=== PATIENT | female | born 1995 ===

== ENCOUNTER 2020-05-16 15:55 | Outpatient (CLI) | payer MEDICAID ==
[2020-05-16 16:46] VITALS: BP 111/59
[2020-05-16] MEDS ORDERED: LACTATED RINGERS 1,000 ML ONE (17:24)
[2020-05-16 17:26] LABS: Bilirubin,Urine NEG (Negative); Blood,Urine NEG (Negative); Color,Urine Yellow (Yellow); Mucus,Urine 1+ /HPF; Protein,Urine <15 mg/dL mg/dL (Negative); RBC,Urine < 1.0 /HPF (0.0-6.0); Urobilinogen,Urine < 2.0 mg/dL (<2.0); WBC,Urine < 1.0 /HPF (0.0-6.0)
--- NOTE | 2020-05-16 18:04 | Ultrasound Report ---
ULTRASOUND OBSTETRIC LIMITED ULTRASOUND BIOPHYSICAL PROFILE INDICATION / CLINICAL INFORMATION: low fluid. Clinical Gestational Age (GA) in weeks, days: TECHNIQUE: Transabdominal. COMPARISON: None available. FINDINGS: BREATHING MOVEMENT = 2 GROSS BODY MOVEMENT = 2 TONE = 2 QUALITATIVE AMNIOTIC FLUID VOLUME = 2 TOTAL BIOPHYSICAL SCORE = 8/8 HEART RATE (beats per minute): 156-158 bpm AMNIOTIC FLUID INDEX (cm) = 8.7 cm (normal = 7-24 cm) PRESENTATION: Cephalic. ADDITIONAL FINDINGS: None. IMPRESSION: 1. Biophysical Score = 8/8 2. TERRANCE measures 8.7 cm 3. heart rate measures 156-158 bpm. Signer Name: Fernando Bingham MD Signed: 05/16/2020 6:00 PM Workstation Name: [employer]
--- NOTE | 2020-05-16 22:02 | Ultrasound Report ---
ULTRASOUND OBSTETRIC LIMITED INDICATION / CLINICAL INFORMATION: low fluid. Clinical Gestational Age (GA): 39 weeks. 2 days COMPARISON: None available. FINDINGS: HEART RATE (beats per minute): 156 AMNIOTIC FLUID INDEX (cm) = 8.7 (normal = 7-24 cm) PRESENTATION: Cephalic. ADDITIONAL FINDINGS: None. IMPRESSION: 1. TERRANCE measures 8.7 cm. Signer Name: Dustin Redmond MD Signed: 05/16/2020 9:58 PM Workstation Name: [id number]
== END 2020-05-16 18:40 | disposition home or self-care (01) ==
LOC: APU 15:55 → TRG 15:55
PROVIDERS: ATTEND Obstetrics & Gynecology
DX: O41.03X0 Oligohydramnios, third trimester, not applicable or unspecified (principal); Z3A.39 39 weeks gestation of pregnancy
CPT/HCPCS: 59025; 76815; 76819; 81001

== ENCOUNTER 2020-05-23 15:40 | Inpatient (IN) | payer MEDICAID ==
[2020-05-23] MEDS ORDERED: TERBUTALINE 1 MG/1 ML INJ SUB-Q PRN (17:10)
[2020-05-23] MEDS ORDERED: BUTORPHANOL 2 MG/1 ML INJ IV PRN (17:10)
[2020-05-23] MEDS ORDERED: ONDANSETRON 4 MG/2 ML INJ IV PRN (17:10)
[2020-05-23] MEDS ORDERED: ePHEDrine SULFATE 50 MG/1 ML INJ IV PRN (17:10)
[2020-05-23] MEDS ORDERED: MINERAL OIL 30 ML ORAL LIQD PO PRN (17:10)
[2020-05-23] MEDS ORDERED: NALOXONE 0.4 MG/1 ML INJ IV PRN (17:10)
--- NOTE | 2020-05-23 17:24 | History and Physical Report ---
History of Present Illness Date of examination: 05/23/20 Date of admission: 05/23/20 15:40 Chief complaint: Presents for induction of labor due to postdates and low TERRANCE History of present illness: Early entry to care at [facility] [employer], Co-managed with [facility] due to obesity. course complicated by Vitamin D Deficiency and Low TERRANCE. Past History Past Medical History: no pertinent history Past Surgical History: no surgical history Family/Genetic History: diabetes (Mother) Social history: no significant social history, single - Obstetrical History Expected Date of Delivery: 05/21/20 Actual Gestation: 40 Week(s) 2 Day(s) : 4 Spontaneous Abortions: 1 Induced : 2 Medications and Allergies Allergies Allergy/AdvReac Type Severity Reaction Status Date / Time cats AdvReac Intermediate Swelling Uncoded 05/16/20 16:37 Active Meds: Active Medications Butorphanol Tartrate (Stadol) 2 mg IV Q2H PRN PRN Reason: Pain , Severe (7-10) Dinoprostone (Cervidil) 10 mg VG ONCE ONE Stop: 05/23/20 18:01 Ephedrine Sulfate (Ephedrine Sulfate) 10 mg IV Q2M PRN PRN Reason: Hypotension Lactated Ringer's (Lactated Ringers) 1,000 mls @ 125 mls/hr IV DIRECT HAN Oxytocin/Sodium Chloride (Pitocin/Ns 30 Unit/500ml) 30 units in 500 mls @ 40 mls/hr IV TITR HAN; Protocol Lidocaine (Xylocaine 2%) 20 ml INFILTRATI ONCE ONE Stop: 05/23/20 17:11 Mineral Oil (Mineral Oil) 30 ml PO QHS PRN PRN Reason: Constipation Naloxone HCl (Naloxone) 0.1 mg IV Q2MIN PRN PRN Reason: Res Rate </= 8 or 02 SAT < 92% Ondansetron HCl (Zofran) 4 mg IV Q8H PRN PRN Reason: Nausea And Vomiting Terbutaline Sulfate (Brethine) 0.25 mg SUB-Q ONCE PRN PRN Reason: Hyperstimulation/Hypertonicity Review of Systems All systems: negative - Vital Signs Vital signs: Vital Signs Temp Pulse Resp BP Pulse Ox 98.2 F 74 18 116/68 98 05/23/20 16:11 05/23/20 16:11 05/23/20 16:11 05/23/20 16:11 05/23/20 16:11 Temp Pulse Resp BP Pulse Ox 98.2 F 99 H 18 116/68 99 05/23/20 16:11 05/23/20 17:16 05/23/20 16:11 05/23/20 16:17 05/23/20 17:16 - Physical Exam Breasts: Positive: normal Cardiovascular: Regular rate Lungs: Positive: Clear to auscultation, Normal air movement Abdomen: Positive: normal appearance, soft, normal bowel sounds Genitourinary (Female): Positive: normal external genitalia, normal perenium Vagina: Positive: normal moisture Uterus: Positive: enlarged Anus/Rectum: Positive: normal perianal skin Extremities: Positive: normal - Obstetrical FHR: category 1 Uterine Contraction Monitor Mode: External Cervical Dilatation: 2 (intact) Cervical Effacement Percentage: 40 station: -3 Uterine Contraction Pattern: Absent Results All other labs normal. Assessment and Plan A: IUP @ 40 2/7 Weeks Category I Tracing Low TERRANCE GBS Negative P: Admit to L&D Per Routine Orders Cervidil Induction
[2020-05-23] MEDS: LACTATED RINGERS 1,000 ML IV SCH (17:33)
[2020-05-23 17:59] LABS: Hematocrit 36.2 % (30.3-42.9); Hemoglobin 11.9 gm/dl (10.1-14.3); Mean Corpuscular HGB Conc 33 % (30-34); Mean Corpuscular Volume 84 fl (79-97); Platelet Count 182 K/mm3 (140-440); Red Blood Count 4.29 M/mm3 (3.65-5.03); Red Cell Distribution Width 16.4 % (13.2-15.2)
[2020-05-23] MEDS ORDERED: DINOPROSTONE 10 MG VAG SUPP VG ONE (18:00)
[2020-05-23] MEDS ORDERED: OXYTOCIN DRIP 30 UNITS/500 ML BAG IV SCH (18:00)
[2020-05-23] MEDS ORDERED: LIDOCAINE (2%) 20 MG/1 ML VIAL 20 ML MDV INFILTRATI ONE (18:00)
[2020-05-24] MEDS: LACTATED RINGERS 1,000 ML IV SCH ×2 (00:54→08:29)
--- NOTE | 2020-05-24 07:05 | Progress Note ---
Assessment and Plan A: IUP @ 40 3/7 Weeks Category I Tracing Low TERRANCE GBS Negative P: Start Pitocin Augmentation Subjective - Subjective Date of service: 05/24/20 (RN states she can not find Cervidil in vaginal vault.) Interval history: [facility] [employer], Co-managed with [facility] due to obesity. course complicated by Vitamin D Deficiency and Low TERRANCE. Patient reports: movement normal, contractions, other (Patients states she thinks she lost Cervidil during a BM earlier in the night) Objective - Vital Signs Vital Signs: Vital Signs - 12hr 05/23/20 05/23/20 05/23/20 19:06 19:11 19:16 Temperature Pulse Rate 94 H 81 84 Respiratory Rate Blood Pressure 105/53 Blood Pressure [Right] O2 Sat by Pulse 100 100 100 Oximetry 05/23/20 05/23/20 05/23/20 19:21 19:26 19:31 Temperature Pulse Rate 81 80 85 Respiratory Rate Blood Pressure Blood Pressure [Right] O2 Sat by Pulse 100 100 100 Oximetry 05/23/20 05/23/20 05/23/20 19:36 19:41 19:46 Temperature Pulse Rate 81 92 H 84 Respiratory Rate Blood Pressure Blood Pressure [Right] O2 Sat by Pulse 100 100 100 Oximetry 05/23/20 05/23/20 05/23/20 19:51 19:56 20:00 Temperature 98.4 F Pulse Rate 92 H 90 80 Respiratory 18 Rate Blood Pressure Blood Pressure 105/53 [Right] O2 Sat by Pulse 100 100 98 Oximetry 05/23/20 05/23/20 05/23/20 20:01 20:06 20:11 Temperature Pulse Rate 103 H 80 81 Respiratory Rate Blood Pressure Blood Pressure [Right] O2 Sat by Pulse 100 100 100 Oximetry 05/23/20 05/23/20 05/23/20 20:16 20:25 20:30 Temperature Pulse Rate 78 78 78 Respiratory Rate Blood Pressure Blood Pressure [Right] O2 Sat by Pulse 100 100 100 Oximetry 05/23/20 05/23/20 05/23/20 20:35 20:40 20:45 Temperature Pulse Rate 78 80 93 H Respiratory Rate Blood Pressure Blood Pressure [Right] O2 Sat by Pulse 99 99 99 Oximetry 05/23/20 05/23/20 05/23/20 20:50 20:55 21:00 Temperature Pulse Rate 85 70 78 Respiratory Rate Blood Pressure Blood Pressure [Right] O2 Sat by Pulse 99 100 100 Oximetry 05/23/20 05/23/20 05/23/20 21:05 21:10 21:15 Temperature Pulse Rate 88 74 78 Respiratory Rate Blood Pressure Blood Pressure [Right] O2 Sat by Pulse 100 100 100 Oximetry 05/23/20 05/23/20 05/23/20 21:20 21:25 21:30 Temperature Pulse Rate 92 H 79 74 Respiratory Rate Blood Pressure Blood Pressure [Right] O2 Sat by Pulse 100 100 100 Oximetry 05/23/20 05/23/20 05/23/20 21:35 21:40 21:45 Temperature Pulse Rate 82 83 77 Respiratory Rate Blood Pressure Blood Pressure [Right] O2 Sat by Pulse 100 100 100 Oximetry 05/23/20 05/23/20 05/23/20 21:50 21:55 22:00 Temperature Pulse Rate 78 81 80 Respiratory Rate Blood Pressure Blood Pressure [Right] O2 Sat by Pulse 99 99 99 Oximetry 05/23/20 05/23/20 05/23/20 22:05 22:10 22:15 Temperature Pulse Rate 81 78 78 Respiratory Rate Blood Pressure Blood Pressure [Right] O2 Sat by Pulse 99 99 99 Oximetry 05/23/20 05/23/20 05/23/20 22:20 22:25 22:30 Temperature Pulse Rate 81 80 79 Respiratory Rate Blood Pressure Blood Pressure [Right] O2 Sat by Pulse 99 100 100 Oximetry 05/23/20 05/23/20 05/23/20 22:43 22:48 22:53 Temperature Pulse Rate 75 73 64 Respiratory Rate Blood Pressure Blood Pressure [Right] O2 Sat by Pulse 99 100 100 Oximetry 05/23/20 05/23/20 05/23/20 22:58 23:03 23:08 Temperature Pulse Rate 67 70 65 Respiratory Rate Blood Pressure Blood Pressure [Right] O2 Sat by Pulse 100 99 100 Oximetry 05/23/20 05/23/20 05/23/20 23:13 23:18 23:23 Temperature Pulse Rate 70 68 69 Respiratory Rate Blood Pressure Blood Pressure [Right] O2 Sat by Pulse 99 100 100 Oximetry 05/23/20 05/23/20 05/23/20 23:28 23:33 23:38 Temperature Pulse Rate 78 71 74 Respiratory Rate Blood Pressure Blood Pressure [Right] O2 Sat by Pulse 99 99 99 Oximetry 05/23/20 05/23/20 05/23/20 23:43 23:48 23:53 Temperature Pulse Rate 73 70 67 Respiratory Rate Blood Pressure Blood Pressure [Right] O2 Sat by Pulse 99 99 99 Oximetry 05/23/20 05/24/20 05/24/20 23:58 00:00 00:03 Temperature 98 F Pulse Rate 63 63 70 Respiratory 16 Rate Blood Pressure Blood Pressure 108/60 [Right] O2 Sat by Pulse 99 100 99 Oximetry 05/24/20 05/24/20 05/24/20 00:08 00:13 00:18 Temperature Pulse Rate 63 68 69 Respiratory Rate Blood Pressure Blood Pressure [Right] O2 Sat by Pulse 98 99 98 Oximetry 05/24/20 05/24/20 05/24/20 00:27 00:32 00:37 Temperature Pulse Rate 71 65 63 Respiratory Rate Blood Pressure Blood Pressure [Right] O2 Sat by Pulse 100 100 100 Oximetry 05/24/20 05/24/20 05/24/20 00:42 00:47 00:52 Temperature Pulse Rate 67 63 71 Respiratory Rate Blood Pressure Blood Pressure [Right] O2 Sat by Pulse 100 98 99 Oximetry 05/24/20 05/24/20 05/24/20 00:53 00:57 01:02 Temperature Pulse Rate 67 73 70 Respiratory Rate Blood Pressure 96/46 Blood Pressure [Right] O2 Sat by Pulse 99 99 Oximetry 05/24/20 05/24/20 05/24/20 01:07 01:12 01:17 Temperature Pulse Rate 92 H 70 66 Respiratory Rate Blood Pressure Blood Pressure [Right] O2 Sat by Pulse 98 99 100 Oximetry 05/24/20 05/24/20 05/24/20 01:22 01:27 01:32 Temperature Pulse Rate 69 66 65 Respiratory Rate Blood Pressure Blood Pressure [Right] O2 Sat by Pulse 100 99 99 Oximetry 05/24/20 05/24/20 05/24/20 01:37 01:42 01:47 Temperature Pulse Rate 68 65 76 Respiratory Rate Blood Pressure Blood Pressure [Right] O2 Sat by Pulse 99 99 98 Oximetry 05/24/20 05/24/20 05/24/20 01:52 01:57 02:02 Temperature Pulse Rate 59 L 64 61 Respiratory Rate Blood Pressure Blood Pressure [Right] O2 Sat by Pulse 99 99 99 Oximetry 05/24/20 05/24/20 05/24/20 02:07 02:12 02:17 Temperature Pulse Rate 68 57 L 63 Respiratory Rate Blood Pressure Blood Pressure [Right] O2 Sat by Pulse 99 99 99 Oximetry 05/24/20 05/24/20 05/24/20 02:22 02:27 02:35 Temperature Pulse Rate 63 71 87 Respiratory Rate Blood Pressure Blood Pressure [Right] O2 Sat by Pulse 98 100 98 Oximetry 05/24/20 05/24/20 05/24/20 02:40 02:45 02:50 Temperature Pulse Rate 67 64 63 Respiratory Rate Blood Pressure Blood Pressure [Right] O2 Sat by Pulse 99 100 99 Oximetry 05/24/20 05/24/20 05/24/20 02:55 03:00 03:05 Temperature Pulse Rate 60 61 57 L Respiratory Rate Blood Pressure Blood Pressure [Right] O2 Sat by Pulse 100 99 99 Oximetry 05/24/20 05/24/20 05/24/20 03:10 03:15 03:20 Temperature Pulse Rate 60 67 82 Respiratory Rate Blood Pressure Blood Pressure [Right] O2 Sat by Pulse 100 99 99 Oximetry 05/24/20 05/24/20 05/24/20 03:25 03:36 03:41 Temperature Pulse Rate 78 89 65 Respiratory Rate Blood Pressure Blood Pressure [Right] O2 Sat by Pulse 99 98 100 Oximetry 05/24/20 05/24/20 05/24/20 03:43 03:46 03:51 Temperature Pulse Rate 67 76 64 Respiratory Rate Blood Pressure 109/53 Blood Pressure [Right] O2 Sat by Pulse 100 100 Oximetry 05/24/20 05/24/20 05/24/20 03:56 03:59 04:01 Temperature 97.7 F Pulse Rate 67 67 73 Respiratory 16 Rate Blood Pressure Blood Pressure 109/53 [Right] O2 Sat by Pulse 100 100 100 Oximetry 05/24/20 05/24/20 05/24/20 04:18 04:23 04:28 Temperature Pulse Rate 101 H 77 72 Respiratory Rate Blood Pressure Blood Pressure [Right] O2 Sat by Pulse 98 100 100 Oximetry 05/24/20 05/24/20 05/24/20 04:33 04:38 04:49 Temperature Pulse Rate 66 78 71 Respiratory Rate Blood Pressure Blood Pressure [Right] O2 Sat by Pulse 100 100 100 Oximetry 05/24/20 05/24/2005/24/20 04:54 04:59 05:04 Temperature Pulse Rate 66 66 71 Respiratory Rate Blood Pressure Blood Pressure [Right] O2 Sat by Pulse 100 100 100 Oximetry 05/24/20 05/24/20 05/24/20 05:09 05:14 05:19 Temperature Pulse Rate 87 68 66 Respiratory Rate Blood Pressure Blood Pressure [Right] O2 Sat by Pulse 99 98 99 Oximetry 05/24/20 05/24/20 05/24/20 05:24 05:29 05:34 Temperature Pulse Rate 62 70 74 Respiratory Rate Blood Pressure Blood Pressure [Right] O2 Sat by Pulse 99 100 99 Oximetry 05/24/20 05/24/20 05/24/20 05:39 05:44 05:49 Temperature Pulse Rate 79 75 79 Respiratory Rate Blood Pressure Blood Pressure [Right] O2 Sat by Pulse 100 100 99 Oximetry 05/24/20 05/24/20 05/24/20 05:54 05:59 06:04 Temperature Pulse Rate 84 77 72 Respiratory Rate Blood Pressure Blood Pressure [Right] O2 Sat by Pulse 100 99 99 Oximetry 05/24/20 05/24/20 05/24/20 06:09 06:19 06:24 Temperature Pulse Rate 70 90 75 Respiratory Rate Blood Pressure Blood Pressure [Right] O2 Sat by Pulse 100 100 100 Oximetry 05/24/20 05/24/20 05/24/20 06:29 06:34 06:39 Temperature Pulse Rate 71 78 80 Respiratory Rate Blood Pressure Blood Pressure [Right] O2 Sat by Pulse 99 100 100 Oximetry 05/24/20 05/24/20 05/24/20 06:45 06:50 06:55 Temperature Pulse Rate 94 H 80 82 Respiratory Rate Blood Pressure Blood Pressure [Right] O2 Sat by Pulse 99 99 98 Oximetry 05/24/20 07:00 Temperature Pulse Rate 78 Respiratory Rate Blood Pressure Blood Pressure [Right] O2 Sat by Pulse 100 Oximetry - Exam Cardiovascular: Regular rate Lungs: Normal air movement Abdomen: Present: normal appearance, soft Uterus: Present: normal, firm, fundal height above umbilicus FHR: category 1 Uterine Contraction Monitor Mode: External Cervical Dilatation: 3 (Intact; Cervidil is not in vagina) Cervical Effacement Percentage: 60 station: -3 Uterine Contraction Pattern: Irregular Uterine Tone Measurement Phase: Resting Uterine Contraction Intensity: Mild - Labs Labs: Abnormal Labs 11/16/20 16:30 WBC 11.3 H RDW 16.4 H Laboratory Results - last 24 hr 05/23/20 05/23/20 16:30 16:30 WBC 11.3 H RBC 4.29 Hgb 11.9 Hct 36.2 MCV 84 MCH 28 MCHC 33 RDW 16.4 H Plt Count 182 Blood Type O POSITIVE Antibody Screen Negative
[2020-05-24] MEDS ORDERED: OXYTOCIN DRIP 30 UNITS/500 ML BAG IV SCH (08:00)
--- NOTE | 2020-05-24 11:10 | Progress Note ---
Assessment and Plan - Patient Problems (1) Encounter for induction of labor Current Visit: Yes Status: Acute Plan to address problem: Continue Pitocin as tolerated Pain meds as desired per orders Anticipate (2) Maternal obesity affecting , antepartum Current Visit: Yes Status: Acute Subjective - Subjective Date of service: 05/24/20 Principal diagnosis: IOL Interval history: See admission H & P and OB progress notes Patient reports: movement normal, contractions ("oh they're starting to hurt"), no new complaints, no loss of fluid, no vaginal bleeding Objective - Vital Signs Vital Signs: Vital Signs - 12hr 05/23/20 05/23/20 05/23/20 23:08 23:13 23:18 Temperature Pulse Rate 65 70 68 Respiratory Rate Blood Pressure Blood Pressure [Right] O2 Sat by Pulse 100 99 100 Oximetry 05/23/20 05/23/20 05/23/20 23:23 23:28 23:33 Temperature Pulse Rate 69 78 71 Respiratory Rate Blood Pressure Blood Pressure [Right] O2 Sat by Pulse 100 99 99 Oximetry 05/23/20 05/23/20 05/23/20 23:38 23:43 23:48 Temperature Pulse Rate 74 73 70 Respiratory Rate Blood Pressure Blood Pressure [Right] O2 Sat by Pulse 99 99 99 Oximetry 05/23/20 05/23/20 05/24/20 23:53 23:58 00:00 Temperature 98 F Pulse Rate 67 63 63 Respiratory 16 Rate Blood Pressure Blood Pressure 108/60 [Right] O2 Sat by Pulse 99 99 100 Oximetry 05/24/20 05/24/20 05/24/20 00:03 00:08 00:13 Temperature Pulse Rate 70 63 68 Respiratory Rate Blood Pressure Blood Pressure [Right] O2 Sat by Pulse 99 98 99 Oximetry 05/24/20 05/24/20 05/24/20 00:18 00:27 00:32 Temperature Pulse Rate 69 71 65 Respiratory Rate Blood Pressure Blood Pressure [Right] O2 Sat by Pulse 98 100 100 Oximetry 05/24/20 05/24/20 05/24/20 00:37 00:42 00:47 Temperature Pulse Rate 63 67 63 Respiratory Rate Blood Pressure Blood Pressure [Right] O2 Sat by Pulse 100 100 98 Oximetry 05/24/20 05/24/20 05/24/20 00:52 00:53 00:57 Temperature Pulse Rate 71 67 73 Respiratory Rate Blood Pressure 96/46 Blood Pressure [Right] O2 Sat by Pulse 99 99 Oximetry 05/24/20 05/24/20 05/24/20 01:02 01:07 01:12 Temperature Pulse Rate 70 92 H 70 Respiratory Rate Blood Pressure Blood Pressure [Right] O2 Sat by Pulse 99 98 99 Oximetry 05/24/20 05/24/20 05/24/20 01:17 01:22 01:27 Temperature Pulse Rate 66 69 66 Respiratory Rate Blood Pressure Blood Pressure [Right] O2 Sat by Pulse 100 100 99 Oximetry 05/24/20 05/24/20 05/24/20 01:32 01:37 01:42 Temperature Pulse Rate 65 68 65 Respiratory Rate Blood Pressure Blood Pressure [Right] O2 Sat by Pulse 99 99 99 Oximetry 05/24/20 05/24/20 05/24/20 01:47 01:52 01:57 Temperature Pulse Rate 76 59 L 64 Respiratory Rate Blood Pressure Blood Pressure [Right] O2 Sat by Pulse 98 99 99 Oximetry 05/24/20 05/24/20 05/24/20 02:02 02:07 02:12 Temperature Pulse Rate 61 68 57 L Respiratory Rate Blood Pressure Blood Pressure [Right] O2 Sat by Pulse 99 99 99 Oximetry 05/24/20 05/24/20 05/24/20 02:17 02:22 02:27 Temperature Pulse Rate 63 63 71 Respiratory Rate Blood Pressure Blood Pressure [Right] O2 Sat by Pulse 99 98 100 Oximetry 05/24/20 05/24/20 05/24/20 02:35 02:40 02:45 Temperature Pulse Rate 87 67 64 Respiratory Rate Blood Pressure Blood Pressure [Right] O2 Sat by Pulse 98 99 100 Oximetry 05/24/20 05/24/20 05/24/20 02:50 02:55 03:00 Temperature Pulse Rate 63 60 61 Respiratory Rate Blood Pressure Blood Pressure [Right] O2 Sat by Pulse 99 100 99 Oximetry 05/24/20 05/24/20 05/24/20 03:05 03:10 03:15 Temperature Pulse Rate 57 L 60 67 Respiratory Rate Blood Pressure Blood Pressure [Right] O2 Sat by Pulse 99 100 99 Oximetry 05/24/20 05/24/20 05/24/20 03:20 03:25 03:36 Temperature Pulse Rate 82 78 89 Respiratory Rate Blood Pressure Blood Pressure [Right] O2 Sat by Pulse 99 99 98 Oximetry 05/24/20 05/24/20 05/24/20 03:41 03:43 03:46 Temperature Pulse Rate 65 67 76 Respiratory Rate Blood Pressure 109/53 Blood Pressure [Right] O2 Sat by Pulse 100 100 Oximetry 05/24/20 05/24/20 05/24/20 03:51 03:56 03:59 Temperature 97.7 F Pulse Rate 64 67 67 Respiratory 16 Rate Blood Pressure Blood Pressure 109/53 [Right] O2 Sat by Pulse 100 100 100 Oximetry 05/24/20 05/24/20 05/24/20 04:01 04:18 04:23 Temperature Pulse Rate 73 101 H 77 Respiratory Rate Blood Pressure Blood Pressure [Right] O2 Sat by Pulse 100 98 100 Oximetry 05/24/20 05/24/20 05/24/20 04:28 04:33 04:38 Temperature Pulse Rate 72 66 78 Respiratory Rate Blood Pressure Blood Pressure [Right] O2 Sat by Pulse 100 100 100 Oximetry 05/24/20 05/24/20 05/24/20 04:49 04:54 04:59 Temperature Pulse Rate 71 66 66 Respiratory Rate Blood Pressure Blood Pressure [Right] O2 Sat by Pulse 100 100 100 Oximetry 05/24/20 05/24/20 05/24/20 05:04 05:09 05:14 Temperature Pulse Rate 71 87 68 Respiratory Rate Blood Pressure Blood Pressure [Right] O2 Sat by Pulse 100 99 98 Oximetry 05/24/20 05/24/20 05/24/20 05:19 05:24 05:29 Temperature Pulse Rate 66 62 70 Respiratory Rate Blood Pressure Blood Pressure [Right] O2 Sat by Pulse 99 99 100 Oximetry 05/24/20 05/24/20 05/24/20 05:34 05:39 05:44 Temperature Pulse Rate 74 79 75 Respiratory Rate Blood Pressure Blood Pressure [Right] O2 Sat by Pulse 99 100 100 Oximetry 05/24/20 05/24/20 05/24/20 05:49 05:54 05:59 Temperature Pulse Rate 79 84 77 Respiratory Rate Blood Pressure Blood Pressure [Right] O2 Sat by Pulse 99 100 99 Oximetry 05/24/20 05/24/20 05/24/20 06:04 06:09 06:19 Temperature Pulse Rate 72 70 90 Respiratory Rate Blood Pressure Blood Pressure [Right] O2 Sat by Pulse 99 100 100 Oximetry 11/05/24/20 05/24/20 06:24 06:29 06:34 Temperature Pulse Rate 75 71 78 Respiratory Rate Blood Pressure Blood Pressure [Right] O2 Sat by Pulse 100 99 100 Oximetry 05/24/20 05/24/20 05/24/20 06:39 06:45 06:50 Temperature Pulse Rate 80 94 H 80 Respiratory Rate Blood Pressure Blood Pressure [Right] O2 Sat by Pulse 100 99 99 Oximetry 05/24/20 05/24/20 05/24/20 06:55 07:00 07:05 Temperature Pulse Rate 82 78 78 Respiratory Rate Blood Pressure Blood Pressure [Right] O2 Sat by Pulse 98 100 99 Oximetry 05/24/20 05/24/20 05/24/20 07:15 07:20 07:25 Temperature Pulse Rate 79 79 86 Respiratory Rate Blood Pressure Blood Pressure [Right] O2 Sat by Pulse 100 99 98 Oximetry 05/24/20 05/24/20 05/24/20 07:30 07:35 07:40 Temperature Pulse Rate 64 79 72 Respiratory Rate Blood Pressure Blood Pressure [Right] O2 Sat by Pulse 99 99 98 Oximetry 05/24/20 05/24/20 05/24/20 07:45 07:50 07:55 Temperature Pulse Rate 74 69 66 Respiratory Rate Blood Pressure Blood Pressure [Right] O2 Sat by Pulse 98 99 99 Oximetry 05/24/20 05/24/20 05/24/20 08:00 08:05 08:10 Temperature Pulse Rate 69 72 69 Respiratory Rate Blood Pressure Blood Pressure [Right] O2 Sat by Pulse 98 98 99 Oximetry 05/24/20 05/24/20 05/24/20 08:15 08:16 08:17 Temperature 98.9 F Pulse Rate 78 70 69 Respiratory 18 Rate Blood Pressure 116/56 Blood Pressure 116/56 [Right] O2 Sat by Pulse 98 99 Oximetry 05/24/20 05/24/20 05/24/20 08:20 08:25 08:30 Temperature Pulse Rate 75 67 76 Respiratory Rate Blood Pressure Blood Pressure [Right] O2 Sat by Pulse 98 99 98 Oximetry 05/24/20 05/24/20 05/24/20 08:35 08:40 08:45 Temperature Pulse Rate 74 74 78 Respiratory Rate Blood Pressure Blood Pressure [Right] O2 Sat by Pulse 99 98 98 Oximetry 05/24/20 05/24/20 05/24/20 08:58 09:03 09:08 Temperature Pulse Rate 74 78 82 Respiratory Rate Blood Pressure Blood Pressure [Right] O2 Sat by Pulse 100 99 99 Oximetry 05/24/20 05/24/20 05/24/20 09:13 09:18 09:23 Temperature Pulse Rate 77 75 59 L Respiratory Rate Blood Pressure Blood Pressure [Right] O2 Sat by Pulse 99 98 100 Oximetry 05/24/20 05/24/20 05/24/20 09:28 09:33 09:38 Temperature Pulse Rate 62 63 66 Respiratory Rate Blood Pressure Blood Pressure [Right] O2 Sat by Pulse 99 99 99 Oximetry 05/24/20 05/24/20 05/24/20 09:43 09:44 09:48 Temperature Pulse Rate 73 79 78 Respiratory Rate Blood Pressure 113/54 Blood Pressure [Right] O2 Sat by Pulse 99 99 Oximetry 05/24/20 05/24/20 05/24/20 09:53 09:58 10:03 Temperature Pulse Rate 78 74 74 Respiratory Rate Blood Pressure Blood Pressure [Right] O2 Sat by Pulse 99 99 99 Oximetry 05/24/20 10:40 Temperature Pulse Rate 65 Respiratory Rate Blood Pressure 117/54 Blood Pressure [Right] O2 Sat by Pulse Oximetry - Exam Breasts: deferred Cardiovascular: Regular rate Lungs: Normal air movement Abdomen: Present: other (gravid) Uterus: Present: other (enlarged, S=D) FHR: category 1 Uterine Contraction Monitor Mode: External Cervical Dilatation: 4 (vertex) Cervical Effacement Percentage: 70 (Pitocin @ 8mu/min) station: -2 Uterine Contraction Frequency (min): 2 Uterine Contraction Pattern: Regular Uterine Tone Measurement Phase: Resting Uterine Contraction Intensity: Moderate Extremities: edema - Labs Labs: Abnormal Labs 05/23/20 16:30 WBC 11.3 H RDW 16.4 H Laboratory Results - last 24 hr 05/23/20 05/23/20 16:30 16:30 WBC 11.3 H RBC 4.29 Hgb 11.9 Hct 36.2 MCV 84 MCH 28 MCHC 33 RDW 16.4 H Plt Count 182 Blood Type O POSITIVE Antibody Screen Negative
--- NOTE | 2020-05-24 13:41 | Event Note ---
Date: 05/24/20 SVE: /-1. No BOW is palpated, small amount of pink blood tinged fluid noted. Pt states she has "felt wet for some time, but can't remember a big gush occuring". Therefore, rupture time is unknown. Pitocin increased to 10 mu/min. Will con't to monitor.
[2020-05-24] MEDS ORDERED: fentaNYL 100 MCG/2 ML INJ IV SCH (16:00)
[2020-05-24] MEDS ORDERED: LIDOCAINE (2%) 20 MG/1 ML VIAL 20 ML MDV INFILTRATI ONE (19:04)
[2020-05-24] MEDS ORDERED: LANOLIN/ZINC/DIMETHICONE (LANSINOH) 7 GM TP PRN (21:27)
[2020-05-24] MEDS ORDERED: MAGNESIUM HYDROXIDE (MOM) ORAL LIQD UDC PO PRN (21:27)
[2020-05-24] MEDS ORDERED: diphenhydrAMINE 25 MG CAP PO PRN (21:27)
[2020-05-24] MEDS ORDERED: WITCH HAZEL/ GLYCERIN PAD TP PRN (21:27)
[2020-05-24] MEDS ORDERED: PROMETHAZINE 25 MG TAB PO PRN (21:27)
--- NOTE | 2020-05-24 21:34 | Procedure Note ---
OB Delivery Note - Delivery Date of Delivery: 05/24/20 (2105) Surgeon: ANGEL CARSON (CNM) Estimated blood loss: 200cc - Vaginal Delivery presentation: vertex Delivery position: OA (ALOK) Intrapartum events: meconium (term) Delivery induction: cervidil Delivery augmentation: pitocin Delivery monitor: external FHT, external uterine Route of delivery: Delivery placenta: spontaneous (2114) Delivery cord: nuchal cord (x1, tight, reduced on perineum), 3 umbilical vessels Episiotomy: none Delivery laceration: none Anesthesia: none Delivery comments: of viable female crying infant placed directly to maternal abdomen. Cord double clamped, cut by FOB after cessation of pulsation. Cord blood collected. Placenta spontaneously delivered, pinedo, disposed per hospital policy. Uterus firm @ U-2, hemostasis maintained. Perineum intact. Mother and baby safe, stable and left in care of RN. - Infant A at 1 minute: 8 at 5 minutes: 9 Gender: Female (Weight: 3720 gms (8lbs 3ozs) 20 inches)
[2020-05-24] MEDS: IBUPROFEN 600 MG TAB PO SCH (22:08)
[2020-05-25] MEDS: IBUPROFEN 600 MG TAB PO SCH ×3 (05:38→18:25)
[2020-05-25] MEDS ORDERED: DIPHtheria,PERTUSSIS(ACELL),TETANUS VACCINE/PF 0.5 ML VIAL IM ONE (06:00)
[2020-05-25] MEDS: oxyCODONE /ACETAMINOPHEN 5-325MG TAB PO PRN ×2 (08:45→20:15)
[2020-05-25 09:37] LABS: Hemoglobin 10.2 gm/dl (10.1-14.3)
[2020-05-25] MEDS ORDERED: PRENATAL VIT27-FE FUMARATE-FOLIC ACID VIT TAB PO SCH (10:00)
--- NOTE | 2020-05-25 13:23 | Progress Note ---
Assessment and Plan A: PP Day #1 Stable P: Follow Routine Orders Depo Provera 150mg IM prior to discharge D/C home in the AM RTO in 6 Weeks Subjective - Subjective Date of service: 05/25/20 Principal diagnosis: IOL Interval history: Early entry to care at [facility] [employer], Co-managed with [facility] due to obesity. course complicated by Vitamin D Deficiency and Low TERRANCE. Patient reports: appetite normal, voiding normally, pain well controlled, flatus, ambulating normally [place]: doing well, bottle feeding Objective - Vital Signs Latest vital signs: Vital Signs Temp Pulse Resp BP BP Pulse Ox 05/25/20 08:30 97.3 F L 70 18 84/45 05/25/20 04:00 98.6 F 79 18 119/79 05/25/20 02:10 109 H 98 05/25/20 02:05 106 H 97 05/25/20 02:00 105 H 97 05/25/20 01:55 105 H 97 05/25/20 01:50 97 H 97 05/25/20 01:45 106 H 100 05/25/20 01:09 123 H 120/69 05/24/20 23:05 98.4 F 64 18 91/33 98 05/24/20 22:40 67 107/57 05/24/20 22:09 59 L 99/54 05/24/20 22:08 18 05/24/20 21:38 78 111/51 05/24/20 21:24 68 107/52 05/24/20 21:03 140 H 97 05/24/20 20:58 112 H 98 05/24/20 20:53 129 H 97 05/24/20 20:48 85 98 05/24/20 20:43 118 H 99 05/24/20 20:38 125 H 98 05/24/20 20:33 39 L 99 05/24/20 20:28 74 98 05/24/20 20:23 76 98 05/24/20 20:18 75 98 05/24/20 20:13 89 97 05/24/20 20:10 179 H 123/92 05/24/20 20:08 74 99 05/24/20 20:03 76 98 05/24/20 19:58 77 97 05/24/20 19:53 71 98 05/24/20 19:47 73 97 11/17/20 19:42 73 98 17/20 19:39 79 137/59 17/20 19:37 74 99 17/20 19:32 83 99 17/20 19:27 82 98 17/20 19:22 91 H 97 17/20 19:17 98 H 98 17/20 19:13 86 127/60 17/20 19:12 92 H 97 17/20 19:07 80 99 17/20 19:02 78 98 17/20 18:57 72 98 17/20 18:52 86 97 17/20 18:47 76 98 17/20 18:42 72 98 17/20 18:37 71 98 17/20 18:32 77 98 17/20 18:27 94 H 98 20 18:22 76 98 20 18:17 77 97 20 18:12 74 98 1720 18:07 76 98 17/20 18:02 77 98 17/20 17:57 82 99 17/20 17:52 72 98 17/20 17:47 91 H 98 17/20 17:42 79 99 17/20 17:37 93 H 98 1720 17:32 72 98 17/20 17:27 75 99 17/20 17:22 76 98 17/20 17:17 71 98 17/20 17:12 83 98 17/20 17:07 75 98 17/20 17:02 69 99 17/20 16:57 67 98 17/20 16:52 81 97 17/20 16:47 67 97 17/20 16:42 68 99 17/20 16:41 75 94 17/20 16:37 68 97 17/20 16:32 77 99 17/20 16:27 72 98 17/20 16:22 84 99 17/20 16:17 75 97 17/20 16:12 62 99 17/20 16:07 66 100 17/20 16:02 78 98 17/20 15:57 84 98 05/24/20 15:52 86 99 05/24/20 15:50 68 90 05/24/20 15:47 80 99 05/24/20 15:42 76 100 05/24/20 15:40 74 154/77 05/24/20 15:37 78 98 05/24/20 15:32 77 98 05/24/20 15:27 84 98 05/24/20 15:22 80 98 05/24/20 15:17 66 100 05/24/20 15:12 69 99 05/24/20 15:09 69 118/55 05/24/20 15:07 64 99 05/24/20 15:02 72 98 05/24/20 14:57 61 97 05/24/20 14:52 69 98 05/24/20 14:47 79 99 05/24/20 14:42 63 99 05/24/20 14:39 67 109/67 05/24/20 14:37 69 99 05/24/20 14:32 71 98 05/24/20 14:27 79 100 05/24/20 14:16 63 98 05/24/20 14:11 71 99 05/24/20 14:06 63 98 05/24/20 14:01 65 99 05/24/20 13:56 74 98 05/24/20 13:51 70 98 05/24/20 13:46 75 98 05/24/20 13:41 76 98 05/24/20 13:36 66 97 05/24/20 13:31 69 98 05/24/20 13:26 64 99 Intake and Output 05/24/20 05/25/20 05/25/20 22:59 06:59 14:59 Intake Total 48.333 300 120 Output Total 950 Balance 48.333 -650 120 Intake: IV 48.333 PITOCin/NS 30 UNIT/500ML 48.333 30 units In 500 ml @ 4 mls/hr IV TITR HAN Rx#: [id number] Oral 120 Intake, Free Water 300 Output: Urine 950 Void 950 Other: Total, Intake Amount 120 Total, Output Amount 450 # Voids Void 1 - Exam Breasts: Present: normal Cardiovascular: Present: Regular rate Lungs: Present: Clear to auscultation, Normal air movement Abdomen: Present: normal appearance, soft, normal bowel sounds Uterus: Present: normal, firm, fundal height below umbilicus Extremities: Present: normal - Labs Labs: Abnormal lab results 05/25/20 Range/Units 08:58 Hct 30.0 L D (30.3-42.9) %
--- NOTE | 2020-05-25 13:24 | Discharge Summary ---
Providers - Providers Date of Admission: 05/23/20 15:40 Date of discharge: 05/26/20 Attending physician: DAKOTAH TAFOYA JR, MD Primary care physician: DAKOTAH TAFOYA JR, MD Hospitalization Reason for admission: induction of labor Delivery: Episiotomy: none Laceration: none Other procedures: none complications: none Discharge diagnosis: IUP at term delivered [place] baby: female Condition at discharge: Good Disposition: DC-01 TO HOME OR SELFCARE Plan - Provider Discharge Summary Activity: routine, no sex for 6 weeks, no heavy lifting 4 weeks, no strenuous exercise Diet: routine Instructions: routine Additional instructions: [] Smoking cessation referral if applicable(refer to patient education folder for contact #) [] Refer to [facility]'s [facility] Booklet Call your doctor immediately for: * Fever > 100.5 * Heavy vaginal bleeding ( >1 pad per hour) * Severe persistent headache * Shortness of breath * Reddened, hot, painful area to leg or breast * Drainage or odor from incision. * Keep incision clean and dry at all times and follow doctor's instructions regarding bathing/showering - Follow up plan Follow up: DAKOTAH TAFOYA JR, MD [Primary Care Provider] - 6 Weeks
[2020-05-25] MEDS ORDERED: medroxyPROGESTERone ACETATE 150 MG/ML SYRINGE IM SCH (13:30)
[2020-05-25 21:14] VITALS: BP 92/50
== END 2020-05-25 23:55 | disposition home or self-care (01) | DRG 775 ==
LOC: LD 15:40 → OB 05-24 23:05
PROVIDERS: ADMIT Obstetrics & Gynecology; ATTEND Obstetrics & Gynecology
PROC: 3E033VJ Introduction of Other Hormone into Peripheral Vein, Percutaneous Approach (ICD-10-PCS; principal; 2020-05-24)
PROC: 3E0234Z Introduction of Serum, Toxoid and Vaccine into Muscle, Percutaneous Approach (ICD-10-PCS; 2020-05-24)
PROC: 10E0XZZ Delivery of Products of Conception, External Approach (ICD-10-PCS; 2020-05-24)
DX: O77.0 Labor and delivery complicated by meconium in amniotic fluid (principal); O48.0 Post-term pregnancy; O99.214 Obesity complicating childbirth; O69.1XX0 Labor and delivery complicated by cord around neck, with compression, not applicable or unspecified; Z20.828 Contact with and (suspected) exposure to other viral communicable diseases; Z37.0 Single live birth; Z3A.40 40 weeks gestation of pregnancy; Z23 Encounter for immunization
CPT/HCPCS: 36415; 59200; 85014; 85018; 85027; 86850; 86900; 86901; 90471; 90715; G0378; J0595; J2405; J2590; J3010; J7120; U0003